=== PATIENT | female | born 1960 | race Caucasian/White ===

== ENCOUNTER 2017-10-17 15:50 | Emergency (ER) | payer OTHER ==
[~2017-10-17] VITALS: Ht 154.9 cm; Wt 68.0 kg
[2017-10-17 15:59] VITALS: TEMP 36.8; Ht 154.9 cm; Wt 68.0 kg
[2017-10-17 16:19] VITALS: O2SAT 96
[2017-10-17 16:32] LABS: BASO % 0.6 %; BASO ABS # 0.03 K/uL (0-0.2); EOS % 1.6 %; EOS ABS # 0.08 K/uL (0-0.5); HEMATOCRIT 42.8 % (37-47); HEMOGLOBIN 15.1 g/dL (12.0-16.0); IG# 0.01 K/uL (0.00-0.02); LYMPH % 48.9 %; LYMPH ABS # 2.47 K/uL (1.2-3.4); MEAN CELL VOLUME 90.9 fL (80-100); MEAN CORPUSCULAR HEMOGLOBIN 32.1 pg (25-34); MEAN CORPUSCULAR HGB CONC 35.3 g/dl (32-36); MEAN PLATELET VOLUME 9.2 fL (7.4-10.4); MONO % 5.1 %; MONO ABS # 0.26 K/uL (0.11-0.59); NEUT % 43.6 %; PLATELET COUNT 199 K/uL (130-400); RED CELL DISTRIBUTION WIDTH SD 40.1 fL (36.4-46.3); WHITE BLOOD COUNT 5.05 K/uL (4.8-10.8)
[2017-10-17 16:43] LABS: ALBUMIN 4.4 gm/dl (3.4-5.0); ALKALINE PHOSPHATASE 118 U/L (45-117); ALT/SGPT 27 U/L (12-78); AST/SGOT 21 U/L (15-37); BLOOD UREA NITROGEN 9 mg/dl (7-18); CARBON DIOXIDE 31 mmol/L (21-32); CREATININE 0.64 mg/dl (0.60-1.20); GLUCOSE 76 mg/dl (70-99); LIPASE 85 U/L (73-393); POTASSIUM 3.6 mmol/L (3.5-5.1); SODIUM 140 mmol/L (136-145); TOTAL PROTEIN 8.2 gm/dl (6.4-8.2)
--- NOTE | 2017-10-17 16:45 | DIAGNOSTIC IMAGING REPORT ---
SINGLE VIEW CHEST CLINICAL HISTORY: Atypical chest pain. FINDINGS: An AP, portable, upright chest radiograph is obtained. No prior studies are available for comparison at the time of dictation. The examination is degraded by portable technique and patient rotation. The cardiomediastinal silhouette is unremarkable. The lungs and pleural spaces are clear. No pneumothorax is seen. The skeletal structures are osteopenic. The bony thorax is grossly intact. Degenerative change is noted in the shoulders. IMPRESSION: No acute cardiopulmonary abnormality. Electronically signed by: Phani Niño M.D. 10/17/2017 4:43 PM Dictated Date/Time: 10/17/2017 4:43 PM
[2017-10-17] MEDS ORDERED: OXGN (17:14)
[2017-10-17] MEDS ORDERED: LISI-725 PO (17:14)
[2017-10-17] MEDS ORDERED: ALPR1TAB3 PO (17:14)
[2017-10-17] MEDS ORDERED: FLUO20CA35 PO (17:14)
[2017-10-17] MEDS ORDERED: OXYC20TA50 PO (17:14)
[2017-10-17] MEDS ORDERED: ALBU18002 INH (17:14)
[2017-10-17] MEDS ORDERED: OXYC-594 PO (17:14)
[2017-10-17] MEDS ORDERED: AMPH20TA2 PO (17:14)
--- NOTE | 2017-10-17 17:29 | EMERGENCY ROOM VISIT NOTE ---
History Report prepared by Gianluca: Annika Chapa Under the Supervision of: Dr. Valentino Carrera M.D. First contact with patient: 15:59 Chief Complaint: CHEST PAIN Stated Complaint: CHEST PAIN History of Present Illness The patient is a 57 year old female who presents to the Emergency Room with complaints of a "tightness" in her chest prior to arrival that is currently resolved. The patient states that she was getting an open MRI done on her neck when she felt claustrophobic and then felt a tightness in her chest. The patient states that this feeling radiated down her right arm. She denies any nausea, abdominal pain, or shortness of breath today. The patient states that she was given four baby aspirin in the ambulance on the way to the ED. The patient states that a couple of weeks ago she woke up at 0530 because of tingling down her arms and into her fingers. She states that her friend got her up and checked her blood pressure and oxygen levels which were both normal. The patient states that she is on oxygen at night and as needed during the day. The patient states that she has a family history of heart disease with her mother having bypass in her 80s, her sister and two of her brothers had previous heart attacks, and her father of a heart attack. The patient denies any heart problems before. The patient states that she does have a history of gallstones and hypertension, but denies a history of diabetes. She states that at baseline her toes are numb and her back hurts all of the time. The patient states that she is currently taking Xanax, Percocet, OxyContin, Adderall, and blood pressure medication everyday. The patient states that she is a previous smoker. Source of History: patient Onset: prior to arrival Position: chest Quality: other (tightness) Timing: other (resolved) Associated Symptoms: No SOB, No nausea, No abdominal pain Review of Systems See HPI for pertinent positives and negatives. A total of ten systems were reviewed and were otherwise negative. Family History FH: heart disease Social History Smoking Status: Former Smoker Drug Use: none Housing Status: lives with friends Current/Historical Medications Scheduled Alprazolam (Xanax), 1 MG PO DAILY Amphetamine-Dextroamphetamine 20MG (Adderall 20MG), 10 MG PO BID Fluoxetine (Prozac), 20 MG PO DAILY Home O2 Therapy (Oxygen), 2 LITERS NA HS Lisinopril (Zestril), 20 MG PO DAILY Oxycodone Hcl (Oxycontin), 20 MG PO Q12 Scheduled PRN Albuterol Sulfate (Proair Respiclick), 2 PUFFS INH Q6H PRN for SOB/Wheezing Oxycodone/Acetaminophen 10MG/325MG (Percocet 10MG/325MG), 1 TAB PO Q6H PRN for Pain Allergies Coded Allergies: Sulfamethoxazole w/Trimethoprim (Unverified Allergy, Unknown, NAUSEA, 10/17) Physical Exam Vital Signs Date Time Temp Pulse Resp B/P (MAP) Pulse Ox O2 Delivery O2 Flow Rate FiO2 10/17/17 18:00 83 16 126/96 100 10/17/17 16:43 72 18 133/93 98 Room Air 10/17/17 16:19 96 Room Air 10/17/17 16:02 98 Room Air 10/17/17 16:02 72 10/17/17 15:59 36.8 74 18 167/98 97 Room Air Physical Exam GENERAL: Awake, alert, well-appearing, in no distress HENT: Normocephalic, atraumatic. Oropharynx unremarkable. EYES: Normal conjunctiva. Sclera non-icteric. NECK: Supple. No nuchal rigidity. RESPIRATORY: Clear to auscultation. No wheezes. Normal respiratory effort. CARDIAC: Normal rate. Normal rhythm. Extremities warm and well perfused. GI: Soft, non-distended. No tenderness to palpation. No rebound or guarding. RECTAL: Deferred. MUSCULOSKELETAL: Atraumatic. Chest examination reveals no tenderness. LOWER EXTREMITIES: Calves are equal size bilaterally and non-tender. No edema NEURO: Normal sensorium. No sensory or motor deficits noted. No facial droop. Baseline neuropathy of toes, gross sensation intact. SKIN: Warm and dry. No rash or jaundice noted. Medical Decision & Procedures ER Provider Diagnostic Interpretation: Radiology results as stated below per my review and radiologist interpretation: SINGLE VIEW CHEST CLINICAL HISTORY: Atypical chest pain. FINDINGS: An AP, portable, upright chest radiograph is obtained. No prior studies are available for comparison at the time of dictation. The examination is degraded by portable technique and patient rotation. The cardiomediastinal silhouette is unremarkable. The lungs and pleural spaces are clear. No pneumothorax is seen. The skeletal structures are osteopenic. The bony thorax is grossly intact. Degenerative change is noted in the shoulders. IMPRESSION: No acute cardiopulmonary abnormality. Electronically signed by: Phani Niño M.D. 10/17/2017 4:43 PM Dictated Date/Time: 10/17/2017 4:43 PM Laboratory Results 10/17/17 15:14 Red Blood Count 4.71, Mean Corpuscular Volume 90.9, Mean Corpuscular Hemoglobin 32.1, Mean Corpuscular Hemoglobin Concent 35.3, Mean Platelet Volume 9.2, Neutrophils (%) (Auto) 43.6, Lymphocytes (%) (Auto) 48.9, Monocytes (%) (Auto) 5.1, Eosinophils (%) (Auto) 1.6, Basophils (%) (Auto) 0.6, Neutrophils # (Auto) 2.20, Lymphocytes # (Auto) 2.47, Monocytes # (Auto) 0.26, Eosinophils # (Auto) 0.08, Basophils # (Auto) 0.03 10/17/17 15:14 Test 10/17/17 15:14 White Blood Count 5.05 K/uL (4.8-10.8) Red Blood Count 4.71 M/uL (4.2-5.4) Hemoglobin 15.1 g/dL (12.0-16.0) Hematocrit 42.8 % (37-47) Mean Corpuscular Volume 90.9 fL (80-100) Mean Corpuscular Hemoglobin 32.1 pg (25-34) Mean Corpuscular Hemoglobin Concent 35.3 g/dl (32-36) Platelet Count 199 K/uL (130-400) Mean Platelet Volume 9.2 fL (7.4-10.4) Neutrophils (%) (Auto) 43.6 % Lymphocytes (%) (Auto) 48.9 % Monocytes (%) (Auto) 5.1 % Eosinophils (%) (Auto) 1.6 % Basophils (%) (Auto) 0.6 % Neutrophils # (Auto) 2.20 K/uL (1.4-6.5) Lymphocytes # (Auto) 2.47 K/uL (1.2-3.4) Monocytes # (Auto) 0.26 K/uL (0.11-0.59) Eosinophils # (Auto) 0.08 K/uL (0-0.5) Basophils # (Auto) 0.03 K/uL (0-0.2) RDW Standard Deviation 40.1 fL (36.4-46.3) RDW Coefficient of Variation 12.0 % (11.5-14.5) Immature Granulocyte % (Auto) 0.2 % Immature Granulocyte # (Auto) 0.01 K/uL (0.00-0.02) Anion Gap 6.0 mmol/L (3-11) Est Creatinine Clear Calc Drug Dose 83.5 ml/min Estimated GFR () 113.2 Estimated GFR (Non- 97.7 BUN/Creatinine Ratio 13.5 (10-20) Calcium Level 9.0 mg/dl (8.5-10.1) Total Bilirubin 0.5 mg/dl (0.2-1) Direct Bilirubin 0.1 mg/dl (0-0.2) Aspartate Amino Transf (AST/SGOT) 21 U/L (15-37) Alanine Aminotransferase (ALT/SGPT) 27 U/L (12-78) Alkaline Phosphatase 118 U/L (45-117) Troponin I < 0.015 ng/ml (0-0.045) Total Protein 8.2 gm/dl (6.4-8.2) Albumin 4.4 gm/dl (3.4-5.0) Lipase 85 U/L (73-393) Laboratory results reviewed by me ECG Per My Interpretation Indication: chest pain Rate (beats per minute): 73 Rhythm: normal sinus Findings: T-wave inversion (lead III), other (normal axis, normal intervals, no ST elevation) Comparison ECG Date: no prior available ED Course 1600: The patient was evaluated in room C9. A complete history and physical exam was performed. 1726: I reevaluated the patient. Discussed results and discharge instructions: She verbalized understanding and agreement. The patient is ready for discharge. Medical Decision Differential diagnosis: Etiologies such as cardiac ischemia, aortic dissection, pulmonary embolism, pneumonia, pneumothorax, musculoskeletal, infections, pericarditis, myocarditis , esophageal rupture, gastrointestinal, as well as others were entertained. Patient presents after experiencing some chest tightness and anxiety symptoms during a cervical outpatient MRI today. History of claustrophobia. Symptoms have resolved. Denies shortness of breath. Intermittently uses oxygen related underlying pulmonary conditions at home. History of anxiety issues as well. Strong family history of cardiac disease but EKG without acute ST changes here although no prior available for comparison. Chest x-ray completed within normal limits. Basic labs are unremarkable and troponin is negative. I doubt pneumonia pneumothorax dissection or PE. Lower suspicion for ACS. She did already receive aspirin today. Does have some risk factors but given the circumstances surrounding this believe this is related to anxiety. Will recommend follow-up within the next week with regular doctor. Discussed return precautions. Stable for discharge. Medication Reconcilliation Current Medication List: was personally reviewed by me Blood Pressure Screening Patient's blood pressure: Elevated blood pressure Blood pressure disposition: Referred to PCP Impression Primary Impression: Chest pain Scribe Attestation The scribe's documentation has been prepared under my direction and personally reviewed by me in its entirety. I confirm that the note above accurately reflects all work, treatment, procedures, and medical decision making performed by me. Departure Information Dispostion Home / Self-Care Referrals Ara Freeman.,P.A. Forms Call Back Authorization, HOME CARE DOCUMENTATION FORM, IMPORTANT VISIT INFORMATION Patient Instructions My [facility] Additional Instructions Please continue to follow-up with your regular doctor within the next week and discuss the events of today. If at any time you experience new or concerning symptoms including but not limited to severe chest pain or shortness of breath please return to the emergency department for reevaluation. Would discuss with your doctor possible benefits of taking a daily aspirin. Maintain good hydration. Problem Qualifiers Primary Impression: Chest pain Chest pain type: unspecified Qualified Codes: R07.9 - Chest pain, unspecified
[2017-10-17 18:00] VITALS: BP 126/96; PULSE 83; O2SAT 100
== END 2017-10-17 18:00 | disposition home or self-care (01) ==
LOC: C.EDC 15:52
DX: R07.9 Chest pain, unspecified (principal); Z87.891 Personal history of nicotine dependence; Z82.49 Family history of ischemic heart disease and other diseases of the circulatory system; Z79.899 Other long term (current) drug therapy; Z88.2 Allergy status to sulfonamides